=== PATIENT | female | born 2000 | race Caucasian/White ===

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

== ENCOUNTER 2022-06-21 20:25 | Emergency (ER) | payer OTHER, SELFPAY ==
--- NOTE | ~2022-06-21 | XR_ITS ---
EXAMINATION: XR knee LT 3V DATE: 06/21/2022 20:56 INDICATION: Left knee injury TECHNIQUE: AP, lateral and sunrise views of the left knee were obtained COMPARISON: None. FINDINGS: Alignment is normal. No fracture. Joint spaces appear normal. No joint effusion. Soft tissues are un remarkable. IMPRESSION: 1. Negative left knee radiographs. Reviewed, dictated and finalized at location A. MACY TEACHER
[2022-06-21 20:26] VITALS: BP 110/73; PULSE 86; RESP 16; TEMP 36.9; O2SAT 98
[2022-06-22 00:37] VITALS: BP 110/71; PULSE 86; RESP 16; O2SAT 97
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
[2022-06-22] MEDS: ACETAMINOPHEN 500 MG TABLET 1000 MG PO (01:05)
[2022-06-22] MEDS: IBUPROFEN 400 MG TABLET PO (01:05)
== END 2022-06-22 01:23 | disposition home or self-care (01) ==
PROVIDERS: Emergency Provider Emergency Medicine; PCP Emergency Medicine
DX: S89.92XA Unspecified injury of left lower leg, initial encounter (principal); Y09 Assault by unspecified means; W23.1XXA Caught, crushed, jammed, or pinched between stationary objects, initial encounter
CPT/HCPCS: 73562; 99283; A9270

== ENCOUNTER 2024-03-31 10:41 | Emergency (ER) | payer OTHER, SELFPAY ==
--- NOTE | ~2024-03-31 | US_ITS ---
EXAMINATION: US OB <= 14 weeks fetus DATE: 03/31/2024 12:12 INDICATION: Low abdominal cramping. . TECHNIQUE: Real-time transabdominal pelvic ultrasound was performed. COMPARISON: None. FINDINGS: The uterus measures 12.1 x 9.2 x 9.3 cm. There is an intrauterine gestational sac. The crown ru mp length measures 6.4 cm, which correlates with an estimated gestational age of 12 weeks and 6 day(s ) (+/-) 1 week(s) and 1 day(s). heart motion is identified measuring 154 beats per minute (bpm) by M-mode Doppler. The right ovary measures 3.6 x 1.6 x 1.8 cm. The left ovary is not visualized. Th ere is no free fluid in the pelvis. IMPRESSION: 1. Single living intrauterine gestation with estimated date of delivery of 10/07/2024. Reviewed, dictated and finalized at location A. LER PORTABLE IMPRESSION: 1. Single living intrauterine gestation with estimated date of delivery of 09/14.
[2024-03-31 10:50] VITALS: BP 113/77; PULSE 93; RESP 16; TEMP 36.7; O2SAT 100
--- NOTE | 2024-03-31 11:20 | ED.PREGNANCY ---
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 Time Seen by Provider: 03/31/24 10:49 History of Present Illness HPI Narrative: Patient is a 23-year-old female presenting with lower abdominal cramping. States that her last menstrual period was approximately 3 months ago. States that it was very light. Since that time she has developed lower abdominal cramping as well as daily nausea. States that she took a test about a month ago and was faintly positive. States that she had some diarrhea about a month ago but this has resolved. No further complaints. Related Data Allergies Allergy/AdvReac Type Severity Reaction Status Date / Time cefdinir Allergy Rash Verified 03/31/24 10:57 Review of Systems Review of Systems: All systems reviewed & are unremarkable except as noted in HPI and below PMFSH Past Medical History Medical History Finger injury Dislocated left pinky finger Irregular heartbeat Surgical History Surgical History History of ear surgery Cochlear ear surgery @ and 2018. No significant past surgical history Family History Family History Mother Acute myocardial infarction Father Acute myocardial infarction Heart disease Social History Social History Smoking status: Unknown if ever smoked Tobacco type: cigarettes Smokeless tobacco user: other Alcohol intake: never Alcohol use details: Pt drinks socially. 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 Gender identity (if verbalized by the patient): Female Exam Narrative: GENERAL: Well-appearing, nontoxic, no acute distress, pleasant and cooperative HEAD: Normocephalic, atraumatic. EYES: PERRLA and EOMI. ENT: Mucous membranes moist. NECK: Supple. CHEST: Clear to auscultation. No respiratory distress. HEART: Regular rate and rhythm ABDOMEN: Soft, mild lower abdominal tenderness w/o guarding or rebound EXTREMITIES: No edema. SKIN: Warm, dry, no rash. NEURO: Alert and oriented x3. PSYCH: Normal mood and affect. Course Vital Signs Vital signs: Vital Signs Temperature 98.1 F 03/31/24 10:50 Pulse Rate 93 03/31/24 10:50 Respiratory Rate 16 03/31/24 10:50 Blood Pressure 113/77 03/31/24 10:50 Pulse Oximetry 100 03/31/24 10:50 Oxygen Delivery Room Air 03/31/24 10:50 Temperature 98.1 F 03/31/24 10:50 Pulse Rate 93 03/31/24 10:50 Respiratory Rate 16 03/31/24 10:50 Blood Pressure 113/77 03/31/24 10:50 Pulse Oximetry 100 03/31/24 10:50 Oxygen Delivery Room Air 03/31/24 10:50 MDM - OB/Uterine Contractions MDM Narrative Medical decision making narrative: 23-year-old female presenting with lower abdominal cramping. Vitals are stable. Exam remarkable for the above. Urine is positive. Beta hCG is greater than 150,000. Ultrasound confirms a single intrauterine gestation with cardiac activity. Estimated delivery is October 07, 2024. Discussed the findings with the patient. Advise she follow up closely with Ob, will get her started on prenatals. Discussed appropriate care and return precautions. Discharged in stable condition. Lab Data 03/31/24 11:13 03/31/24 11:13 Labs: Lab Results 03/31/24 03/31/24 Range/Units 11:13 11:13 WBC 5.9 (4.5-10.0) K/mm3 RBC 3.84 L (4.2-5.4) M/mm3 Hgb 11.6 L (12.0-15.0) g/dL Hct 32.6 L (37.0-47.0) % MCV 84.9 (80-100) fl MCH 30.2 (26-34) pg MCHC 35.6 (32-36) g/dl RDW 13.3 (11.5-14.5) % Plt Count 200 (150-375) k/mm3 MPV 9.8 (7.4-10.4) fl Immature Gran % (Auto) 0.2 (0-0.5) % Neut % (Auto) 66.7 (45.5-73.1) % Lymph % (Auto) 27.6 (18.3-44.2) % [place] % (Auto) 4.9 (2.6-8.5) % Eos % (Auto) 0.3 (0-4.4) % Baso % (Auto) 0.3 (0.2-1.2) % Lymph # (Auto) 1.62 (0.9-3.2) K/mm3 [place] # (Auto) 0.3 (0.1-0.6) K/mm3 Eos # (Auto) 0.0 (0-0.3) K/mm3 Baso # (Auto) 0.0 (0.0-0.1) K/mm3 Abs Immat Gran (auto) 0.01 (0.00-0.031) K/mm3 Absolute Neuts (auto) 3.9 (1.3-6.7) K/mm3 Absolute Nucleated RBC 0.000 (0.0-0.012) K/mm3 Nucleated RBC % 0.0 (0.0-0.2) % Sodium 135 L (137-145) mmol/L Potassium 3.3 L (3.4-5.0) mmol/L Chloride 102 (98-107) mmol/L Carbon Dioxide 26 (22-30) mmol/L Anion Gap 7 (4-12) mmol/L BUN 5 L D (7-17) mg/dL Creatinine 0.50 L (0.7-1.0) mg/dL Estim Creat Clear Calc 110 ml/min Estimated GFR > 60 (59 - ) Glucose 84 (65-110) mg/dL Calcium 9.3 (8.4-10.2) mg/dL Total Bilirubin 0.7 (0.2-1.3) mg/dL AST 17 (14-36) U/L ALT 11 (6-35) U/L Alkaline Phosphatase 53 (38-126) U/L Total Protein 7.0 (6.3-8.2) g/dL Albumin 4.4 (3.5-5.1) g/dL Lipase 34 Cancelled (23-300) U/L Beta HCG, Quant 76769.00 mIU/ML Urine Color Yellow (Yellow) Urine Appearance Clear (Clear) Urine pH 5.5 (5.0-9.0) Ur Specific [place] 1.015 (1.001-1.035) Urine Protein Negative (Negative) mg/dL Urine Glucose (UA) Negative (Negative) mg/dL Urine Ketones Negative (Negative) mg/dL Ur Blood (Man) Negative (Negative) Urine Nitrate Negative (Negative) Urine Bilirubin Negative (Negative) Urine Urobilinogen 0.2 (<2.0) mg/dL Leukocyte Esterase Rfl Trace H (Negative) CAROLYN/UL Urine RBC 0-2 (0-2) /hpf Urine WBC 6-10 H (0-3) /hpf Ur Squamous Epith Cells Moderate (Few) /hpf Urine Bacteria Rare /hpf Urine Casts 0-2 Urine Test Cancelled Imaging Data Radiologist's impression: ITS Impressions Ultrasound 03/31/24 12:16 IMPRESSION: 1. Single living intrauterine gestation with estimated date of delivery of 10/07/2024. Critical Care Time Critical Care Time Critical Care Time: No Discharge Plan Discharge Clinical Impression: , Abdominal cramping affecting , Nausea Patient Disposition: Home, Self-Care Condition: Stable Instructions: Antibiotic Form, Abdominal Pain in (ED), at 11 to 14 Weeks (ED) Additional Instructions: Your workup today shows a single healthy fetus in your uterus. Please use Tylenol for any cramping in you may use the nausea medicine as needed. Please take the daily vitamins and follow-up closely with OB. If your symptoms worsen or other concerning symptoms arise, please return to the ER. Prescriptions: New PNV #[id number] acid-dha 35 mg iron-5 mg iron-1 mg capsule 1 cap PO DAILY Qty: 30 0RF ondansetron 4 mg tablet,disintegrating 4 mg PO Q8H PRN (Reason: nausea and vomiting) Qty: 14 0RF No Action sertraline 50 mg tablet 50 mg PO DAILY Qty: 30 3RF Follow-up/Referrals: Chang Lopez MD [Physician] - PHYSICIAN,GLASS POLISHER [Primary Care Provider] -
[2024-03-31 11:27] LABS: Basophils Percent Auto 0.3 % (0.2-1.2); Eosinophils Percent Auto 0.3 % (0-4.4); Hematocrit 32.6 % (37.0-47.0); Hemoglobin 11.6 g/dL (12.0-15.0); Immature Granulocyte Absolute 0.01 K/mm3 (0.00-0.031); Immature Granulocyte Percent A 0.2 % (0-0.5); Lymphocytes Absolute Auto 1.62 K/mm3 (0.9-3.2); Lymphocytes Percent Auto 27.6 % (18.3-44.2); Mean Corpuscular HGB Conc 35.6 g/dl (32-36); Mean Corpuscular Hemoglobin 30.2 pg (26-34); Mean Corpuscular Volume 84.9 fl (80-100); Mean Platelet Volume 9.8 fl (7.4-10.4); Monocytes Absolute Auto 0.3 K/mm3 (0.1-0.6); Monocytes Percent Auto 4.9 % (2.6-8.5); Neutrophils Absolute Auto 3.9 K/mm3 (1.3-6.7); Neutrophils Percent Auto 66.7 % (45.5-73.1); Platelet Count Result 200 k/mm3 (150-375); Red Blood Count 3.84 M/mm3 (4.2-5.4); Red Cell Distribution Width 13.3 % (11.5-14.5); White Blood Count 5.9 K/mm3 (4.5-10.0)
[2024-03-31] MEDS: ONDANSETRON HCL ODT 4 MG TABLET PO (11:31)
[2024-03-31 11:33] LABS: Add Urine Microscopic? YES; Appearance Urine Clear (Clear); Bacteria Urine Rare /hpf; Bilirubin Urine Negative (Negative); Blood Urine Negative (Negative); Color Urine Yellow (Yellow); Glucose Urine UA Negative (Negative); Ketones Urine Negative (Negative); Leukocyte Esterase Ur Trace LEU/UL (Negative); Nitrate Urine Negative (Negative); Non Pathogenic Casts 0-2; Protein Urine Negative (Negative); RBC Urine 0-2 /hpf (0-2); Specific Grav Ur 1.015 (1.001-1.035); Squamous Epithelial Cell Urine Moderate /hpf (Few); Urobilinogen Urine 0.2 mg/dL (<2.0); pH Urine 5.5 (5.0-9.0)
[2024-03-31 11:38] LABS: Alanine Aminotransferase 11 U/L (6-35); Albumin Level 4.4 g/dL (3.5-5.1); Alkaline Phosphatase 53 U/L (38-126); Anion Gap 7 mmol/L (4-12); Aspartate Amino Transferase 17 U/L (14-36); Bilirubin,Total 0.7 mg/dL (0.2-1.3); Blood Urea Nitrogen 5 mg/dL (7-17); Calcium 9.3 mg/dL (8.4-10.2); Carbon Dioxide 26 mmol/L (22-30); Chloride 102 mmol/L (98-107); Estimated CRCL calculation 110 ml/min; Estimated Glomerular Filt Rate > 60; Glucose 84 mg/dL (65-110); Lipase 34 U/L (23-300); Potassium 3.3 mmol/L (3.4-5.0); Sodium 135 mmol/L (137-145)
[2024-04-02 10:03] LABS: BEDSIDEPREGUCG Positive (Negative)
== END 2024-03-31 13:52 | disposition home or self-care (01) ==
PROVIDERS: Emergency Provider Emergency Medicine
DX: O26.891 Other specified pregnancy related conditions, first trimester (principal); R10.30 Lower abdominal pain, unspecified; R11.0 Nausea; Z3A.12 12 weeks gestation of pregnancy
CPT/HCPCS: 36415; 76801; 80053; 81001; 81025; 83690; 84702; 85025; 99284; A9270

== ENCOUNTER 2024-04-20 11:51 | Emergency (ER) | payer OTHER, SELFPAY ==
--- NOTE | ~2024-04-20 | US_ITS ---
EXAMINATION: US OB follow up DATE: 04/20/2024 13:31 INDICATION: Abdominal pain. TECHNIQUE: Real-time ultrasound of the pelvis was performed. COMPARISON: Ultrasound 03/31/2024 FINDINGS: There is a single living fetus in variable presentation. The placenta is fundal. heart rate is 156 beats per minute (bpm). The amniotic fluid index is 8.5 cm, which is normal. The following biometric data were obtained: Biparietal diameter (BPD): 3.5 cm; head circumference (HC): 13.2 cm; abdominal circumference (AC): 10 .7 cm; femur length (FL): 2.0 cm. These measurements are concordant. Estimated weight is 152 g +/- 23 g, which correlates with the 15th percentile when 09/29/24 is u sed as estimated date of delivery. As single measurements, these parameters are each equal to the following estimated gestational ages: BPD: 16 weeks 5 days. HC: 16 weeks 5 days. AC: 16 weeks 4 days. FL: 15 weeks 6 days. estimated gestational age based solely on measurements from this exam is 16 weeks 3 days +/- 1 weeks 1 days. IMPRESSION: 1. Single living fetus in variable presentation. 2. Estimated weight is 152 g +/- 23 g, which correlates with the 15th percentile when 09/29/24 is used as estimated date of delivery. Note that estimated date of delivery based on the ultrasound f rom 03/31/2024 would be 10/07/2024. Reviewed, dictated and finalized at location A. [facility] [employer] [facility] IMPRESSION: 1. Single living fetus in variable presentation. 2. Estimated weight is 152 g +/- 23 g, which correlates with the 15th pe rcentile when 09/29/24 is used as estimated date of delivery. Note that estimate d date of delivery based on the ultrasound from 03/31/2024 would be 10/07/2024.
[2024-04-20 12:01] VITALS: BP 116/68; PULSE 95; RESP 16; TEMP 36.4; O2SAT 100
[2024-04-20 12:35] VITALS: BP 103/60; PULSE 91; RESP 18; TEMP 36.9; O2SAT 100
[2024-04-20 12:39] LABS: BEDSIDEPREGUCG Positive (Negative)
--- NOTE | 2024-04-20 13:37 | ED.ABDPAIN ---
HPI - Abdominal Pain General Chief Complaint: Abdominal Pain Stated Complaint: wants an OBGYN, 4 months Time Seen by Provider: 04/20/24 12:36 Source: patient Mode of arrival: ambulatory Limitations: no limitations History of Present Illness HPI narrative: Patient is a 23-year-old female, past medical history of cochlear implant, who presents to the ED with report lower abdominal cramping. Patient reports she is currently about 16 weeks gestation. . Has had intermittent lower abdominal cramping over the last 1 month. Has been taking ibuprofen at times for the pain. Reports persistent nausea and vomiting. Was previously seen in the ED here for vomiting and was prescribed Zofran, but states she has run out of this. Reported having 1 episode of small amount of light pink bleeding last week, denies any bleeding since. Denies fevers, difficulty urinating, hematuria. Patient has not had care yet for this . She would like to be referred to an OBGYN. Related Data Allergies Allergy/AdvReac Type Severity Reaction Status Date / Time cefdinir Allergy Rash Verified 03/31/24 10:57 Review of Systems Review of Systems: All systems reviewed & are unremarkable except as noted in HPI. All systems reviewed & are unremarkable except as noted in HPI and below PMFSH Past Medical History Medical History Finger injury Dislocated left pinky finger Irregular heartbeat Surgical History Surgical History History of ear surgery Cochlear ear surgery @ and 2019. No significant past surgical history Family History Family History Mother Acute myocardial infarction Father Acute myocardial infarction Heart disease Social History Social History Smoking status: Unknown if ever smoked Tobacco type: cigarettes Smokeless tobacco user: other Alcohol intake: never Alcohol use details: Pt drinks socially. 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 Gender identity (if verbalized by the patient): Female Exam Narrative: GENERAL: Well appearing, well-nourished, non-toxic, in no acute distress. HEAD: Normocephalic, atraumatic. RESPIRATORY: Airway patent, respirations nonlabored. Clear to auscultation bilaterally, no rales, rhonchi, wheezing. CARDIOVASCULAR: Regular rate and rhythm without murmurs, rubs, or gallops. ABDOMINAL: Soft, minimal tenderness throughout lower abdomen, nondistended. Normoactive BS. MUSCULOSKELETAL: Moves all extremities. No gross deformities. SKIN: Warm, dry, normal color. NEURO: A&O X3. Speech clear. PSYCHIATRIC: Appropriate mood and affect. Normal interaction. Course Vital Signs Vital signs: Vital Signs Temperature 97.6 F 04/20/24 12:01 Pulse Rate 95 04/20/24 12:01 Respiratory Rate 16 04/20/24 12:01 Blood Pressure 116/68 04/20/24 12:01 Pulse Oximetry 100 04/20/24 12:01 Oxygen Delivery Room Air 04/20/24 12:01 Temperature 98.3 F 04/20/24 15:29 Pulse Rate 82 04/20/24 14:33 Respiratory Rate 18 04/20/24 14:33 Blood Pressure 96/59 L 04/20/24 14:33 Pulse Oximetry 100 04/20/24 14:33 Oxygen Delivery Room Air 04/20/24 12:01 MDM - Abdominal Pain MDM Narrative Medical decision making narrative: Patient presented to ED approximately 16 weeks gestation, reporting lower abdominal cramping, N/V, wanting to be referred to an OBGYN. Vital signs are stable upon arrival. Patient is in no acute distress. Exam unremarkable. Ob ultrasound was obtained and reassuring. Showing interval growth from previous US, good FHT, no other significant abnormalities noted. Blood type O+. Labs are fairly unremarkable. Minimal anemia noted. UA clear. No evidence of infection. Patient given benadryl and reglan in the ED. She is feeling much better on reeval. Able to tolerate PO intake. Feels ready for d/c home. Will rx a few zofran for home use. Provided with list of OBGYN. Advised close f/u to establish care and have further management. Given strict return precautions. D/C in stable condition. Medical Records Attestation: I reviewed the patient's medical records. Lab Data Attestation: I reviewed the patient's lab results. 04/20/24 13:41 04/20/24 13:41 Labs: Lab Results 04/20/24 04/20/24 Range/Units 12:32 13:41 WBC 6.5 (4.5-10.0) K/mm3 RBC 3.39 L (4.2-5.4) M/mm3 Hgb 10.7 L (12.0-15.0) g/dL Hct 29.7 L (37.0-47.0) % MCV 87.6 (80-100) fl MCH 31.6 (26-34) pg MCHC 36.0 (32-36) g/dl RDW 13.4 (11.5-14.5) % Plt Count 212 (150-375) k/mm3 MPV 9.9 (7.4-10.4) fl Immature Gran % (Auto) 0.3 (0-0.5) % Neut % (Auto) 70.7 (45.5-73.1) % Lymph % (Auto) 23.5 (18.3-44.2) % [place] % (Auto) 5.1 (2.6-8.5) % Eos % (Auto) 0.2 (0-4.4) % Baso % (Auto) 0.2 (0.2-1.2) % Lymph # (Auto) 1.53 (0.9-3.2) K/mm3 [place] # (Auto) 0.3 (0.1-0.6) K/mm3 Eos # (Auto) 0.0 (0-0.3) K/mm3 Baso # (Auto) 0.0 (0.0-0.1) K/mm3 Abs Immat Gran (auto) 0.02 (0.00-0.031) K/mm3 Absolute Neuts (auto) 4.6 (1.3-6.7) K/mm3 Absolute Nucleated RBC 0.000 (0.0-0.012) K/mm3 Nucleated RBC % 0.0 (0.0-0.2) % Sodium 134 L (137-145) mmol/L Potassium 3.3 L (3.4-5.0) mmol/L Chloride 104 (98-107) mmol/L Carbon Dioxide 26 (22-30) mmol/L Anion Gap 4 (4-12) mmol/L BUN 6 L (7-17) mg/dL Creatinine 0.40 L (0.7-1.0) mg/dL Estim Creat Clear Calc 134 ml/min Estimated GFR > 60 (59 - ) Glucose 92 (65-110) mg/dL Calcium 8.9 (8.4-10.2) mg/dL Magnesium 1.9 (1.6-2.3) mg/dL Total Bilirubin 0.4 (0.2-1.3) mg/dL AST 16 (14-36) U/L ALT 10 (6-35) U/L Alkaline Phosphatase 56 (38-126) U/L Total Protein 7.0 (6.3-8.2) g/dL Albumin 4.0 (3.5-5.1) g/dL Lipase 102 (23-300) U/L Beta HCG, Quant 95698.00 mIU/ML Urine Color Yellow (Yellow) Urine Appearance Clear (Clear) Urine pH 7.5 (5.0-9.0) Ur Specific [place] 1.008 (1.001-1.035) Urine Protein Negative (Negative) mg/dL Urine Glucose (UA) Negative (Negative) mg/dL Urine Ketones Negative (Negative) mg/dL Ur Blood (Man) Negative (Negative) Urine Nitrate Negative (Negative) Urine Bilirubin Negative (Negative) Urine Urobilinogen 1.0 (<2.0) mg/dL Leukocyte Esterase Rfl Negative (Negative) CAROLYN/UL POC Urine HCG, Qual Positive (Negative) Blood Type O Positive Antibody Screen Negative Screen Not Reportable Baby's Blood Type Not Reportable Baby's ALVAREZ Not Reportable Doses of RhIg Required 0 Imaging Data Attestation: I personally reviewed and interpreted this imaging study as follows: Radiologist's impression: ITS Impressions Obstetrics Ultrasound 04/20/24 13:54 IMPRESSION: 1. Single living fetus in variable presentation. 2. Estimated weight is 152 g +/- 23 g, which correlates with the 15th percentile when 09/29/24 is used as estimated date of delivery. Note that estimated date of delivery based on the ultrasound from 03/31/2024 would be 10/07/2024. Discharge Plan Discharge Clinical Impression: 16 weeks gestation of Abdominal pain during Qualifiers: Trimester: second trimester Qualified Code(s): O26.892 - Other specified related conditions, second trimester Patient Disposition: Home, Self-Care Condition: Stable Instructions: Antibiotic Form, Abdominal Pain in (ED), at 15 to 18 Weeks (ED) Additional Instructions: Utilize zofran as needed for further nausea. Increase fluid intake. Recommend electrolyte rich fluids, gatorade, pedialyte, body armour. Recommend clear liquids or bland diet until symptoms improve, such as bananas, rice, applesauce, toast, or crackers. Follow up with your OBGYN for further evaluation. Return to the ED if you experience worsening or severe symptoms, unable to keep down food or drink, severe pain, vaginal bleeding, persistent fevers, rectal bleeding, vomiting blood, or any other symptoms of concern. Prescriptions: New ondansetron 4 mg tablet,disintegrating 4 mg PO Q8H PRN (Reason: nausea and vomiting) Qty: 10 0RF No Action sertraline 50 mg tablet 50 mg PO DAILY Qty: 30 3RF PNV #[id number] acid-dha 35 mg iron-5 mg iron-1 mg capsule 1 cap PO DAILY Qty: 30 0RF ondansetron 4 mg tablet,disintegrating 4 mg PO Q8H PRN (Reason: nausea and vomiting) Qty: 14 0RF Follow-up/Referrals: UNKNOWN,DOCTOR [Primary Care Provider] - Time of Disposition: 15:23
[2024-04-20] MEDS: METOCLOPRAMIDE HCL 10 MG TABLET PO (13:54)
[2024-04-20] MEDS: diphenhydrAMINE HCl CAP 25 MG CAPSULE PO (13:54)
[2024-04-20 13:56] LABS: Basophils Percent Auto 0.2 % (0.2-1.2); Eosinophils Percent Auto 0.2 % (0-4.4); Hematocrit 29.7 % (37.0-47.0); Hemoglobin 10.7 g/dL (12.0-15.0); Immature Granulocyte Absolute 0.02 K/mm3 (0.00-0.031); Immature Granulocyte Percent A 0.3 % (0-0.5); Lymphocytes Absolute Auto 1.53 K/mm3 (0.9-3.2); Lymphocytes Percent Auto 23.5 % (18.3-44.2); Mean Corpuscular Hemoglobin 31.6 pg (26-34); Mean Corpuscular Volume 87.6 fl (80-100); Mean Platelet Volume 9.9 fl (7.4-10.4); Monocytes Absolute Auto 0.3 K/mm3 (0.1-0.6); Monocytes Percent Auto 5.1 % (2.6-8.5); Neutrophils Absolute Auto 4.6 K/mm3 (1.3-6.7); Neutrophils Percent Auto 70.7 % (45.5-73.1); Platelet Count Result 212 k/mm3 (150-375); Red Blood Count 3.39 M/mm3 (4.2-5.4); Red Cell Distribution Width 13.4 % (11.5-14.5); White Blood Count 6.5 K/mm3 (4.5-10.0)
[2024-04-20 13:58] LABS: Add Urine Microscopic? NO; Appearance Urine Clear (Clear); Bilirubin Urine Negative (Negative); Blood Urine Negative (Negative); Color Urine Yellow (Yellow); Glucose Urine UA Negative (Negative); Ketones Urine Negative (Negative); Leukocyte Esterase Ur Negative LEU/UL (Negative); Nitrate Urine Negative (Negative); Protein Urine Negative (Negative); Specific Grav Ur 1.008 (1.001-1.035); pH Urine 7.5 (5.0-9.0)
[2024-04-20 14:07] LABS: Alanine Aminotransferase 10 U/L (6-35); Alkaline Phosphatase 56 U/L (38-126); Anion Gap 4 mmol/L (4-12); Aspartate Amino Transferase 16 U/L (14-36); Bilirubin,Total 0.4 mg/dL (0.2-1.3); Blood Urea Nitrogen 6 mg/dL (7-17); Calcium 8.9 mg/dL (8.4-10.2); Carbon Dioxide 26 mmol/L (22-30); Chloride 104 mmol/L (98-107); Estimated CRCL calculation 134 ml/min; Estimated Glomerular Filt Rate > 60; Glucose 92 mg/dL (65-110); Lipase 102 U/L (23-300); Magnesium 1.9 mg/dL (1.6-2.3); Potassium 3.3 mmol/L (3.4-5.0); Sodium 134 mmol/L (137-145)
[2024-04-20 14:33] VITALS: BP 96/59; PULSE 82; RESP 18; TEMP 36.8; O2SAT 100
[2024-04-20 15:29] VITALS: TEMP 36.8
== END 2024-04-20 15:33 | disposition home or self-care (01) ==
PROVIDERS: Emergency Provider Physician Assistant
DX: O26.892 Other specified pregnancy related conditions, second trimester (principal); R10.30 Lower abdominal pain, unspecified; Z3A.16 16 weeks gestation of pregnancy
CPT/HCPCS: 36415; 76816; 80053; 81003; 81025; 83690; 83735; 84702; 85025; 85461; 86850; 86900; 86901; 99284; A9270